=== PATIENT | female | born 1980 | race Caucasian/White ===

== ENCOUNTER → 2020-08-25 | Day surgery (SDC) | payer MEDICAID ==
[~2020-08-25] MED LIST: 50% Dextrose in Water 50 ML Syringe IVPUSH PRN; Albuterol 0.083% 2.5 MG/3 ML Neb Soln NEB PRN; Atropine 0.1 MG/ML 10 ML Syringe IVPUSH PRN; Dexamethasone 4 MG/ML 5 ML MDV ONE; EPINEPHrine 1:10,000 1 MG/10 ML Syringe IVPUSH PRN; Lactated Ringers 1,000 ML IV SCH; Lidocaine 2% 5 ML SDV ONE; Midazolam 1 MG/ML 2 ML SDV ONE; Naloxone 0.4 MG/ML Syringe IVPUSH PRN; Ondansetron 4 MG/2 ML SDV ONE; Propofol 200 MG/20 ML SDV ONE; Rocuronium Bromide 50 MG/5 ML Syringe ONE; Sodium Chloride 0.9% 20 ML ONE; ceFAZolin 1 GM Vial ONE; fentaNYL 100 MCG/2 ML SDV IVPUSH PRN; fentaNYL 250 MCG/5 ML SDV ONE
--- NOTE | 2020-08-25 08:36 | PCM.PREANE ---
Preanesthetic Assessment - Anesthesia/Transfusion/Family Hx Anesthesia History: Prior Anesthesia Without Reaction Family History of Anesthesia Reaction: No Intubation History: Unknown - Review of Systems General: No Symptoms Pulmonary: No Symptoms Cardiovascular: No Symptoms Gastrointestinal: No Symptoms Neurological: No Symptoms Other: Reports: None - Physical Assessment ASA Class: 2 Mental Status: Alert & Oriented x3 Airway Class: Mallampati = 2 Dentition: Reports: Normal Dentition Thyro-Mental Finger Breadths: 3 Mouth Opening Finger Breadths: 3 ROM/Head Extension: Full Lungs: Clear to Auscultation, Normal Respiratory Effort Cardiovascular: Regular Rate, Regular Rhythm - Allergies Allergies/Adverse Reactions: Allergies Allergy/AdvReac Type Severity Reaction Status Date / Time codeine Allergy Nausea Verified 07/16/20 15:12 morphine Allergy Nausea Verified 08/25/20 08:24 oxycodone Allergy Nausea Verified 08/25/20 08:25 - Blood Blood Available: No - Anesthesia Plan Pre-Op Medication Ordered: None - Acknowledgements Anesthesia Type Planned: General Anesthesia Pt an Appropriate Candidate for the Planned Anesthesia: Yes Alternatives and Risks of Anesthesia Discussed w Pt/Guardian: Yes Pt/Guardian Understands and Agrees with Anesthesia Plan: Yes PreAnesthesia Questionnaire Genitourinary History: Reports: Renal Calculus (recent h/o pyelonephritis with sepsis - resolved with antibiotics and ureteral stent) Endocrine/Metabolic History: Reports: Hypothyroidism, Obesity/BMI 30+ - Infectious Disease History Infectious Disease History: Reports: Other (See Below) (Covid positive since july) - Past Surgical History GI Surgical History: Reports: Cholecystectomy Female Surgical History: Reports: Section (x2), Ureteral Stent Musculoskeletal Surgical History: Reports: Other (See Below) (ankle surgery) - SUBSTANCE USE Tobacco Use Status *Q: Light Tobacco User (4 cigarettes per day) - HOME MEDS Home Medications: Home Meds . [No Known Home Meds] 08/25/20 [History]
[2020-08-25] MEDS: Ketorolac 30 MG/ML SDV IVPUSH ONE (10:52)
--- NOTE | 2020-08-25 11:35 | PCM.POSTAN ---
POST ANESTHESIA ASSESSMENT - MENTAL STATUS Mental Status: Alert, Oriented - VITAL SIGNS Vital Signs: Last Vital Signs Temp 36.2 C 08/25/20 10:38 Pulse 88 08/25/20 11:05 Resp 14 08/25/20 11:05 BP 121/74 08/25/20 11:05 Pulse Ox 100 08/25/20 11:05 - RESPIRATORY Respiratory Status: Respiratory Rate WNL, Airway Patent, O2 Saturation Stable - CARDIOVASCULAR CV Status: Pulse Rate WNL, Blood Pressure Stable - GASTROINTESTINAL GI Status: No Symptoms - PAIN Pain Score: 0 - POST OP HYDRATION Hydration Status: Adequate & Stable - OBSERVATIONS Free Text/Narrative:: No anesthesia problems
--- NOTE | 2020-08-25 12:16 | PCM48HPAN ---
Post Anesthesia Note - EVALUATION WITHIN 48HRS OF ANESTHETIC Vital Signs in Normal Range: Yes Patient Participated in Evaluation: Yes Respiratory Function Stable: Yes Airway Patent: Yes Cardiovascular Function Stable: Yes Hydration Status Stable: Yes Pain Control Satisfactory: Yes Nausea and Vomiting Control Satisfactory: Yes Mental Status Recovered: Yes Vital Signs: Last Vital Signs Temp 36.2 C 08/25/20 10:38 Pulse 88 08/25/20 11:05 Resp 14 08/25/20 11:05 BP 121/74 08/25/20 11:05 Pulse Ox 100 08/25/20 11:05 - COMMENTS/OBSERVATIONS Free Text/Narrative:: No anesthesia problems
--- NOTE | 2020-08-25 13:53 | OR ---
SURGEON: Jaime Titus M.D. DATE OF PROCEDURE: 08/25/2020 PREOPERATIVE DIAGNOSIS: Right lower ureteral stone. POSTOPERATIVE DIAGNOSIS: Right lower ureteral stone, large and embedded, about 1 cm. OPERATION: Ureteroscopy, laser lithotripsy, stone removal. DESCRIPTION OF PROCEDURE: The patient was given general anesthesia. She was in dorsal lithotomy position, prepped and draped in sterile drapes. Cystourethroscopy was done. A guidewire was advanced in the right ureter after the double-J stent was removed. The rigid ureteroscope was advanced in the right ureter, which was by now dilated enough. The stone was visualized. There were edematous changes in front and alongside the stone. The stone was treated with laser, broken up into multitude of pieces. These were individually removed using either the grasper or the Zero Tip basket. At the end, further inspection beyond the site of the stone was visualized and there were no additional stones. With that done, the procedure was terminated. The guidewire was removed. The bladder was emptied, the specimen was submitted, and the patient was moved to recovery room in good condition. RAYSHAWN / MARY JO /[id number]
--- NOTE | 2020-08-26 07:12 | CR ---
Indication: Right ureteroscopy with laser lithotripsy. Technique: A single intraoperative view of the right abdomen. Comparison: X-rays dated August 24, 2020. Findings: 6.6 seconds of intraoperative fluoroscopy was provided. Since the previous exam the right ureteral stent has been removed. A scope is identified with the tip most likely in the right ureter/right renal pelvis. Impression: Intraoperative image obtained. Dictated by Fabiola Benavides MD @ Aug 26 2020 7:10AM Signed by Dr. Fabiola Benavides @ Aug 26 2020 7:11AM
== END | disposition home or self-care (01) ==
LOC: MW.SDS 07:38
PROVIDERS: ATTEND Urology
DX: N20.1 Calculus of ureter (principal); E03.9 Hypothyroidism, unspecified; F17.210 Nicotine dependence, cigarettes, uncomplicated; E66.9 Obesity, unspecified; Z90.49 Acquired absence of other specified parts of digestive tract; Z88.5 Allergy status to narcotic agent
CPT/HCPCS: 52353; 76000; 81025; 88300; C1769; J0690; J1100; J1885; J2001; J2250; J2405; J2704; J3010; 00918

== ENCOUNTER 2021-01-27 06:37 | Emergency (ER) | payer MEDICAID ==
[2021-01-27] MEDS ORDERED: Ondansetron 4 MG/2 ML SDV IVPUSH ONE (07:23)
[2021-01-27] MEDS ORDERED: Dextrose 5%-Lactated Ringers 1,000 ML IV SCH (07:30)
[2021-01-27 08:30] LABS: BLOOD UREA NITROGEN,BUN 18 mg/dL (7.0-18.0); CARBON DIOXIDE,CO2 26.2 mmol/L (21.0-32.0); CHLORIDE,CL 100 mmol/L (98-107); GLUCOSE RANDOM 109 mg/dL (74-106); POTASSIUM,K 3.7 mmol/L (3.5-5.1); SODIUM,NA 138 mmol/L (136-145)
[2021-01-27] MEDS ORDERED: diphenhydrAMINE 50 MG/ML SDV IVPUSH ONE (10:01)
[2021-01-27] MEDS ORDERED: Haloperidol Lactate 5 MG/ML SDV IM ONE (10:01)
--- NOTE | 2021-01-27 10:59 | CT ---
INDICATION: Vomiting with history of kidney stones TECHNIQUE: CT abdomen and pelvis without contrast. Body habitus causes some limitation of image quality and diagnostic sensitivity. COMPARISON: [address] FINDINGS: Lower chest: Unremarkable. Liver: Unremarkable. Spleen: Unremarkable. Pancreas: Unremarkable. Gallbladder and bile ducts: Cholecystectomy clips.. Kidneys: 2 millimeter nonobstructing calculus posterior upper pole right kidney. Kidneys are otherwise unremarkable appearing. No hydronephrosis or hydroureter. Adrenal glands: Unremarkable. GI tract: Mostly decompressed stomach. No dilatation or inflammation of small bowel. Physiologic stool volume. No inflammation of the colon. Appendix is not seen. Vascular structures: Unremarkable. Lymph nodes: Unremarkable. Miscellaneous: Unremarkable. No free air or significant free fluid. Pelvic Organs: Unremarkable. Bones: Unremarkable for age. IMPRESSION: Single nonobstructing small calculus right kidney with resolution of prior obstructive uropathy, hydronephrosis and hydroureter from a ureteral stone. No source for vomiting identified. Please note that all CT scans at this facility use dose modulation, iterative reconstruction, and/or weight-based dosing when appropriate to reduce radiation dose to as low as reasonably achievable. Dictated by Bob Mcdonald MD @ 01/27/2021 10:57:[address] Bob Mcdonald @ Jan 27 2021 10:57AM
--- NOTE | 2021-01-27 11:41 | EDM.PDOC ---
ED HPI GENERAL MEDICAL PROBLEM - General Chief Complaint: Gastrointestinal Problem Stated Complaint: NAUSEA AND VOMITING- 5 DAYS Time Seen by Provider: 01/27/21 07:00 - History of Present Illness INITIAL COMMENTS - FREE TEXT/NARRATIVE: CHIEF COMPLAINT(S): "For 5 days I have been really sick." HISTORY OF PRESENT ILLNESS: This is a 40-year-old woman with a past medical history of prior nephrolithiasis who comes to the emergency department with a chief complaint of "for 5 days I have been really sick." The patient states that for the last 5 days she has been feeling really sick. She states that in the morning she was having nausea and vomiting which is nonbloody and nonbilious not associated with any abdominal pain. She denies any pain at all whatsoever. She states that because she was having the nausea and vomiting at home she decided to take 2 tests which were positive and then on the third 1 it was negative, fourth 1 was positive and it does not seem to be consistent. She states that she is late for her period approximately 3 days and she has had prior miscarriages without any ectopic pregnancies. She denies any vaginal bleeding, vaginal discharge, cough, runny nose, congestion. She denies any excessive alcohol use. She denies any Covid exposures. She has not yet received her Covid vaccine. She denies any diarrhea or constipation. REVIEW OF SYSTEMS: Constitutional: Denies fever, chills. Eyes: Denies eye pain Ears, Nose, Mouth, & Throat: Denies earache Cardiovascular: Denies chest pain Respiratory: Denies shortness of breath Gastrointestinal: Positive for nausea and vomiting. Denies diarrhea, medic easier, hematemesis, bilious emesis, melena, abdominal pain genitourinary: Positive for amenorrhea. Denies vaginal bleeding, vaginal discharge, dysuria, hematuria skin:Denies a rash MSK: Denies joint pain Neurological: Denies blurred vision Psychiatric: Denies depression PAST MEDICAL HISTORY: As per history of present illness and as reviewed below otherwise noncontributory. SURGICAL HISTORY: As per history of present illness and as reviewed below otherwise noncontributory. LMP: December 29, 2020 SOCIAL HISTORY: As per history of present illness and as reviewed below o therwise noncontributory. FAMILY HISTORY: As per history of present illness and as reviewed below otherwise noncontributory. EXAMINATION OF ORGAN SYSTEMS/BODY AREAS: Constitutional: Blood pressure is 161/110, heart rate 112, respiratory rate 20 with an oxygen saturation of 99% on room air. Temperature 35.8 temporally General: Obese woman who does not appear to be in acute distress. Psychiatric: Appropriate mood and affect. Eyes: No scleral icterus or conjunctival erythema ENMT: Moist mucous membranes. No pharyngeal erythema Cardiovascular: Regular, rate, and rhythm. No gallops, murmurs, or rubs. Bilateral upper extremity pulses symmetric and intact. No peripheral edema. No JVD. Respiratory: Lungs clear to auscultation bilaterally. No wheezes, rales, or rhonchi. Gastrointestinal: Soft, non-tender, non-distended. Normoactive bowel sounds Genitourinary: No suprapubic tenderness Musculoskeletal: Normal range of motion. Skin: No lesions or abrasions. Neurological: Alert, GCS 15 MEDICAL DECISION MAKING AND COURSE IN THE ED WITH INTERPRETATION/REVIEW OF DIAGNOSTIC STUDIES: This is a 40-year-old with a past medical history of nephrolithiasis who comes to the emergency department with amenorrhea with nausea and vomiting who is mildly tachycardic and hypertensive. At this time is high on the differential given her home test. Will obtain a urinalysis and urine test. Also obtain CBC, CMP, quantitative hCG. We will treat the patient symptomatically with 1 L of D5 LR and provide the patient with Zofran 4 mg IV for nausea. We will reevaluate after laboratory and urinalysis. Laboratory: CBC reveals a leukocytosis of 11.54 without any neutrophilia or left shift. CMP reveals elevated creatinine of 1.1, hyperglycemia at 109, hypercalc emia at 12.1 otherwise unremarkable. Quantitative hCG is less than 1. Urine is negative. Urinalysis was a clean catch and was negative for leukocyte esterase, negative for nitrites, and negative for blood. Interpretation: Negative. After labs I did discuss the results with the patient. At this time the patient stated that she is no longer feeling nauseous. At this time we will trial p.o. and reevaluate the patient. The patient did attempt to tolerate p.o. however she did have an episode of vomiting. Given this we will obtain a CT abdomen pelvis and provide the patient with Haldol and Benadryl for continued nausea and vomiting.. The radiological images were viewed by myself along with reading the report from the radiologist. CT abdomen pelvis without contrast reveals a single nonobstructing small calculus in the right kidney otherwise no acute abdominal process. On reevaluation the patient reported improvement in her symptoms. At this time I did discuss that her work-up is negative and this is likely secondary to viral syndrome. I did discuss with her that I had be prescribing her Zofran for nausea and vomiting there is important to maintain p.o. hydration. She was given strict return precautions. She was amenable discharge and had no further questions. DISPOSITION: The patient was discharged home in stable condition. The patient will follow up with primary care physician in 3 to 5 days CONDITION: Fair PROCEDURES: None FINAL IMPRESSION(S)/DIAGNOSES: 1. Acute nausea 2. Acute vomiting 3. Acute amenorrhea Haroldo Porter M.D. - Related Data Allergies Allergy/AdvReac Type Severity Reaction Status Date / Time codeine Allergy Nausea Verified 01/27/21 06:51 morphine Allergy Nausea Verified 01/27/21 06:51 oxycodone Allergy Nausea Verified 01/27/21 06:51 Home Meds: Home Meds Ondansetron [Zofran ODT] 4 mg PO Q6H PRN #8 tab.dis 01/27/21 [Rx] Past Medical History HEENT History: Reports: None Cardiovascular History: Reports: None Respiratory History: Reports: None Gastrointestinal History: Other Gastrointestinal History: states has occasional heartburn Genitourinary History: Reports: Renal Calculus HUB BANDER History: Reports: Musculoskeletal History: Reports: Other (See Below) Other Musculoskeletal History: states had a slipped disc in back Neurological History: Reports: Other (See Below) Other Neuro History: states occasionaly gets headaches Psychiatric History: Reports: None Endocrine/Metabolic History: Reports: Hypothyroidism, Obesity/BMI 30+ Hematologic History: Reports: None Immunologic History: Reports: None Oncologic (Cancer) History: Reports: None Dermatologic History: Reports: None - Infectious Disease History Infectious Disease History: Reports: Other (See Below) - Past Surgical History Head Surgeries/Procedures: Reports: None HEENT Surgical History: Reports: None Cardiovascular Surgical History: Reports: None GI Surgical History: Reports: Cholecystectomy Female Surgical History: Reports: Section, Ureteral Stent Other Female Surgeries/Procedures: states had a uretheral stent placement in 2019 due to a kidney stone Endocrine Surgical History: Reports: None Musculoskeletal Surgical History: Reports: Other (See Below) Other Musculoskeletal Surgeries/Procedures:: states had left ankle surgery in the past Dermatological Surgical History: Reports: None Social & Family History - Family History Family Medical History: No Pertinent Family History - Caffeine Use Caffeine Use: Reports: Coffee, Soda - Recreational Drug Use Recreational Drug Use: No ED ROS GENERAL - Review of Systems Review Of Systems: See Below ED EXAM, GENERAL - Physical Exam Exam: See Below Course - Vital Signs Last Recorded V/S: Last Vital Signs Temp 35.8 C L 01/27/21 06:50 Pulse 99 01/27/21 11:45 Resp 18 01/27/21 11:45 BP 153/85 H 01/27/21 11:45 Pulse Ox 96 01/27/21 11:45 - Orders/Labs/Meds Labs: Laboratory Tests 01/27/21 01/27/21 01/27/21 Range/Units 07:07 07:07 07:48 WBC 11.54 H (4.0-11.0) K/uL RBC 4.97 (4.30-5.90) M/uL Hgb 14.6 (12.0-16.0) g/dL Hct 43.1 (36.0-46.0) % MCV 86.7 (80.0-98.0) fL MCH 29.4 (27.0-32.0) pg MCHC 33.9 (31.0-37.0) g/dL RDW Std Deviation 45.4 (28.0-62.0) fl RDW Coeff of Leonard 15 (11.0-15.0) % Plt Count 310 (150-400) K/uL MPV 9.70 (7.40-12.00) fL Neut % (Auto) 67.8 (48.0-80.0) % Lymph % (Auto) 23.3 (16.0-40.0) % [place] % (Auto) 7.4 (0.0-15.0) % Eos % (Auto) 1.2 (0.0-7.0) % Baso % (Auto) 0.3 (0.0-1.5) % Neut # (Auto) 7.8 H (1.4-5.7) K/uL Lymph # (Auto) 2.7 H (0.6-2.4) K/uL [place] # (Auto) 0.9 H (0.0-0.8) K/uL Eos # (Auto) 0.1 (0.0-0.7) K/uL Baso # (Auto) 0.0 (0.0-0.1) K/uL Nucleated RBC % 0.0 /100WBC Nucleated RBCs # 0 K/uL Sodium (136-145) mmol/L Potassium (3.5-5.1) mmol/L Chloride (98-107) mmol/L Carbon Dioxide (21.0-32.0) mmol/L BUN (7.0-18.0) mg/dL Creatinine (0.6-1.0) mg/dL Est Cr Clr Drug Dosing Estimated GFR (MDRD) ml/min Glucose (74-106) mg/dL Calcium (8.5-10.1) mg/dL Total Bilirubin (0.2-1.0) mg/dL AST (15-37) IU/L ALT (14-63) IU/L Alkaline Phosphatase (46-116) U/L Total Protein (6.4-8.2) g/dL Albumin (3.4-5.0) g/dL Globulin (2.6-4.0) g/dL Albumin/Globulin Ratio (0.9-1.6) Free T4 (0.76-1.46) ng/dL TSH 3rd Generation (0.36-3.74) uIU/mL HCG, Quant mIU/mL Urine Color YELLOW Urine Appearance CLOUDY Urine pH 6.0 (5.0-8.0) Ur Specific [place] 1.015 (1.001-1.035) Urine Protein NEGATIVE (NEGATIVE) mg/dL Urine Glucose (UA) NEGATIVE (NEGATIVE) mg/dL Urine Ketones NEGATIVE (NEGATIVE) mg/dL Urine Occult Blood NEGATIVE (NEGATIVE) Urine Nitrite NEGATIVE (NEGATIVE) Urine Bilirubin NEGATIVE (NEGATIVE) Urine Urobilinogen 0.2 (<2.0) EU/dL Ur Leukocyte Esterase NEGATIVE (NEGATIVE) Urine HCG, Qual NEGATIVE (NEGATIVE) Blood Type Antibody Screen 01/27/21 01/27/21 01/27/21 Range/Units 07:48 07:48 10:04 WBC (4.0-11.0) K/uL RBC (4.30-5.90) M/uL Hgb (12.0-16.0) g/dL Hct (36.0-46.0) % MCV (80.0-98.0) fL MCH (27.0-32.0) pg MCHC (31.0-37.0) g/dL RDW Std Deviation (28.0-62.0) fl RDW Coeff of Leonard (11.0-15.0) % Plt Count (150-400) K/uL MPV (7.40-12.00) fL Neut % (Auto) (48.0-80.0) % Lymph % (Auto) (16.0-40.0) % [place] % (Auto) (0.0-15.0) % Eos % (Auto) (0.0-7.0) % Baso % (Auto) (0.0-1.5) % Neut # (Auto) (1.4-5.7) K/uL Lymph # (Auto) (0.6-2.4) K/uL [place] # (Auto) (0.0-0.8) K/uL Eos # (Auto) (0.0-0.7) K/uL Baso # (Auto) (0.0-0.1) K/uL Nucleated RBC % /100WBC Nucleated RBCs # K/uL Sodium 138 (136-145) mmol/L Potassium 3.7 (3.5-5.1) mmol/L Chloride 100 (98-107) mmol/L Carbon Dioxide 26.2 (21.0-32.0) mmol/L BUN 18 (7.0-18.0) mg/dL Creatinine 1.1 H (0.6-1.0) mg/dL Est Cr Clr Drug Dosing TNP Estimated GFR (MDRD) 55.3 ml/min Glucose 109 H (74-106) mg/dL Calcium 12.1 H (8.5-10.1) mg/dL Total Bilirubin 1.0 (0.2-1.0) mg/dL AST 23 (15-37) IU/L ALT 27 (14-63) IU/L Alkaline Phosphatase 99 (46-116) U/L Total Protein 7.9 (6.4-8.2) g/dL Albumin 3.5 (3.4-5.0) g/dL Globulin 4.4 H (2.6-4.0) g/dL Albumin/Globulin Ratio 0.8 L (0.9-1.6) Free T4 (0.76-1.46) ng/dL TSH 3rd Generation 12.28 H (0.36-3.74) uIU/mL HCG, Quant < 1.0 mIU/mL Urine Color Urine Appearance Urine pH (5.0-8.0) Ur Specific [place] (1.001-1.035) Urine Protein (NEGATIVE) mg/dL Urine Glucose (UA) (NEGATIVE) mg/dL Urine Ketones (NEGATIVE) mg/dL Urine Occult Blood (NEGATIVE) Urine Nitrite (NEGATIVE) Urine Bilirubin (NEGATIVE) Urine Urobilinogen (<2.0) EU/dL Ur Leukocyte Esterase (NEGATIVE) Urine HCG, Qual (NEGATIVE) Blood Type O POSITIVE Antibody Screen NEGATIVE 01/27/21 Range/Units 10:12 WBC (4.0-11.0) K/uL RBC (4.30-5.90) M/uL Hgb (12.0-16.0) g/dL Hct (36.0-46.0) % MCV (80.0-98.0) fL MCH (27.0-32.0) pg MCHC (31.0-37.0) g/dL RDW Std Deviation (28.0-62.0) fl RDW Coeff of Leonard (11.0-15.0) % Plt Count (150-400) K/uL MPV (7.40-12.00) fL Neut % (Auto) (48.0-80.0) % Lymph % (Auto) (16.0-40.0) % [place] % (Auto) (0.0-15.0) % Eos % (Auto) (0.0-7.0) % Baso % (Auto) (0.0-1.5) % Neut # (Auto) (1.4-5.7) K/uL Lymph # (Auto) (0.6-2.4) K/uL [place] # (Auto) (0.0-0.8) K/uL Eos # (Auto) (0.0-0.7) K/uL Baso # (Auto) (0.0-0.1) K/uL Nucleated RBC % /100WBC Nucleated RBCs # K/uL Sodium (136-145) mmol/L Potassium (3.5-5.1) mmol/L Chloride (98-107) mmol/L Carbon Dioxide (21.0-32.0) mmol/L BUN (7.0-18.0) mg/dL Creatinine (0.6-1.0) mg/dL Est Cr Clr Drug Dosing Estimated GFR (MDRD) ml/min Glucose (74-106) mg/dL Calcium (8.5-10.1) mg/dL Total Bilirubin (0.2-1.0) mg/dL AST (15-37) IU/L ALT (14-63) IU/L Alkaline Phosphatase (46-116) U/L Total Protein (6.4-8.2) g/dL Albumin (3.4-5.0) g/dL Globulin (2.6-4.0) g/dL Albumin/Globulin Ratio (0.9-1.6) Free T4 0.84 (0.76-1.46) ng/dL TSH 3rd Generation (0.36-3.74) uIU/mL HCG, Quant mIU/mL Urine Color Urine Appearance Urine pH (5.0-8.0) Ur Specific [place] (1.001-1.035) Urine Protein (NEGATIVE) mg/dL Urine Glucose (UA) (NEGATIVE) mg/dL Urine Ketones (NEGATIVE) mg/dL Urine Occult Blood (NEGATIVE) Urine Nitrite (NEGATIVE) Urine Bilirubin (NEGATIVE) Urine Urobilinogen (<2.0) EU/dL Ur Leukocyte Esterase (NEGATIVE) Urine HCG, Qual (NEGATIVE) Blood Type Antibody Screen Meds: Medications Discontinued Medications Generic Name Dose Route Start Last Admin Trade Name Freq PRN Reason Stop Dose Admin Diphenhydramine HCl 25 mg 01/27/21 10:01/27/21 10:42 Diphenhydramine 50 Mg/Ml Sdv IVPUSH 01/27/21 10:02 25 mg ONETIME ONE Administration Haloperidol Lactate 2.5 mg 01/27/21 10:01 01/27/21 10:40 Haloperidol Lactate 5 Mg/Ml Sdv IM 01/27/21 10:02 2.5 mg ONETIME ONE Administration Dextrose/Lactated Ringer's 1,000 mls @ 999 mls/hr 01/27/21 07:30 01/27/21 08:15 Dextrose 5%-Lactated Ringers IV 999 mls/hr ASDIRECTED RITU Administration Ondansetron HCl 4 mg 01/27/21 07:23 01/27/21 07:51 Ondansetron 4 Mg/2 Ml Sdv IVPUSH 01/27/21 07:24 4 mg ONETIME ONE Administration Departure - Departure Time of Disposition: 11:41 Disposition: Home, Self-Care 01 Condition: Fair Clinical Impression: Vomiting - Discharge Information *PRESCRIPTION DRUG MONITORING PROGRAM REVIEWED*: No *COPY OF PRESCRIPTION DRUG MONITORING REPORT IN PATIENT MAGGIE: No Prescriptions: Ondansetron [Zofran ODT] 4 mg PO Q6H PRN #8 tab.dis PRN Reason: Nausea/Vomiting Instructions: Nausea and Vomiting, Adult Referrals: PCP,None [Primary Care Provider] - Forms: ED Department Discharge Additional Instructions: Your evaluated today on an emergent basis. At this time it is uncertain as what is causing your nausea and vomiting. This could be secondary to a virus. Your labs did show a mild elevation in your white count and a mild elevation in your creatinine otherwise normal. Your urine did not show any infection in your taste both in your urine and by your blood are negative. At this time I do recommend the use of Zofran as needed for nausea and vomiting and follow-up with your primary care physician in 2 to 3 days. If you are unable to tolerate any fluids or have worsening symptoms please return to the emergency department. [facility] [address] [place] [address] [place] [address] The patient is informed of any results of their evaluation and diagnostic workup and all questions are answered. They are given discharge instructions and return precautions. The patient is stable for discharge. The patient states they understand and agree with the plan and that they will return if their symptoms get worse or if they have any new concerns. The following information is given to patients seen in the emergency department who are being discharged to home. This information is to outline your options for follow-up care. We provide all patients seen in our emergency department with a follow-up referral. The need for follow-up, as well as the timing and circumstances, are variable depending upon the specifics of your emergency department visit. If you don't have a primary care physician on staff, we will provide you with a referral. We always advise you to contact your personal physician following an emergency department visit to inform them of the circumstance of the visit and for follow-up with them and/or the need for any referrals to a consulting specialist. The emergency department will also refer you to a specialist when appropriate. This referral assures that you have the opportunity for follow-up care with a specialist. All of these measure are taken in an effort to provide you with optimal care, which includes your follow-up. Under all circumstances we always encourage you to contact your private physician who remains a resource for coordinating your care. When calling for follow-up care, please make the office aware that this follow-up is from your recent emergency room visit. If for any reason you are refused follow-up, please contact the [facility] Emergency Department at and asked to speak to the emergency department charge nurse. Sepsis Event Note (ED) - Evaluation Sepsis Screening Result: No Definite Risk
--- NOTE | 2021-01-27 14:13 | PCM.EKG ---
#1 Interpretation EKG Date: 01/27/21 Time: 10:34 Rhythm: NSR Rate (Beats/Min): 103 Edson: Normal P-Wave: Present QRS: Normal ST-T: Normal QT: Normal Comparison: No Change (07/16/20) EKG Interpretation Comments: Sinus Tachycardia with right atrial enlargement
== END 2021-01-27 11:45 | disposition home or self-care (01) ==
LOC: MW.ED 06:37
DX: R11.2 Nausea with vomiting, unspecified (principal); N91.2 Amenorrhea, unspecified; E66.9 Obesity, unspecified; Z68.30 Body mass index [BMI] 30.0-30.9, adult; Z88.5 Allergy status to narcotic agent; Z88.6 Allergy status to analgesic agent
CPT/HCPCS: 36415; 74176; 80053; 81003; 81025; 84439; 84443; 84702; 85025; 86850; 86900; 86901; 93005; 96372; 96374; 96375; 99284; J1200; J1630; J2405; J7121; 99283